=== PATIENT | female | born 1940 | race Caucasian/White ===

== ENCOUNTER → 2024-02-05 09:12 | Outpatient (REF) | payer MEDICARE, OTHER, SELFPAY | LOC: HWRCS 09:12 | PROVIDERS: ATTENDING PHYSICIAN Nuclear Medicine Nuclear Cardiology; FAMILY PHYSICIAN Family Medicine | DX: R06.00 Dyspnea, unspecified (principal); I34.0 Nonrheumatic mitral (valve) insufficiency; I34.2 Nonrheumatic mitral (valve) stenosis | CPT/HCPCS: 93306 ==

== ENCOUNTER 2024-03-10 23:06 | Emergency (ER) | payer MEDICARE, OTHER, SELFPAY ==
[2024-03-10 23:07] VITALS: BP 120/50
[2024-03-10 23:27] LABS: % Basophils 0.3 % (0-2); % Eosinophils 0.4 % (0-6); % Immature Granulocytes 0.4 % (0-0.5); % Monocytes 10.9 % (1.7-9.3); Absolute Lymphocytes 0.4 10^3/uL (1.2-3.4); Absolute Monocytes 0.8 10^3/uL (0.1-0.6); Absolute Neutrophils 6.3 10^3/uL (1.4-6.5); Hematocrit 37.5 % (37.0-47.0); Hemoglobin 12.6 g/dL (12.0-16.0); Mean Corp Hgb Conc. 33.6 g/dL (33.0-37.0); Mean Corpuscular Hgb 30.1 pg (27.0-31.0); Mean Corpuscular Volume 89.5 fL (81.0-99.0); Mean Platelet Volume 11.1 fL (7.4-10.4); Nucleated Red Blood Cells % 0 %; Platelet Count 146 10^3/uL (130-400); Red Blood Cell Count 4.19 10^6/uL (4.20-5.40); White Blood Cell Count 7.6 10^3/uL (4.8-10.8)
[2024-03-10 23:42] LABS: ALT (SGPT) 30 U/L (0-35); AST (SGOT) 34 U/L (14-36); Alkaline Phosphatase 51 U/L (38-126); Blood Urea Nitrogen 29 mg/dl (7-17); Calcium 9.2 mg/dl (8.4-10.2); Carbon Dioxide 24 mmol/L (22-30); Chloride 98 mmol/L (98-107); Estimated Creatinine Clearance 41 ml/min; Glucose 193 mg/dl (70-99); Potassium 4.2 mmol/L (3.5-5.1); Sodium 133 mmol/L (135-145); Total Bilirubin 1.1 mg/dl (0.2-1.3); Total Protein 6.4 g/dl (6.3-8.2); eGFR > 60.00
--- NOTE | 2024-03-10 23:52 | ED.GENMED ---
History of Present Illness
General
Chief Complaint: Abdominal Symptoms
Source: patient and family
Exam Limitations: none
Time Seen by Provider: 03/10/24 23:30
Nursing documentation reviewed up to this point in time: agreed with
History of Present Illness
History of Present Illness:
Patient is an 83-year-old female who presents to the ER for evaluation. She reports today she did not feel well and then prior to arrival started with diarrhea and had around 3 episodes of diarrhea. She stood up at home in her bedroom prior to
arrival and fell hitting her right forehead. She denies loss of consciousness. She was able to call her daughter who was not able to get her up and they called EMS. Patient did feel nauseous and was given Zofran by medics and does feel better.
She denies any abdominal pain.
Review of Systems
Review of Systems
Allergies reviewed?: Yes
All Other Systems: ROS reviewed and negative except as documented in HPI and ROS
Constitutional: Reports fatigue; Denies fever or chills
EENT: Reports no symptoms
Respiratory: Reports no symptoms
Cardiac: Reports no symptoms
ABD/GI: Reports nausea and diarrhea; Denies abdominal pain or vomiting
Musculoskeletal: Reports no symptoms
Skin: Reports no symptoms
Neurological: Reports no symptoms
Psychiatric: Reports no symptoms
Phy Exam
General Physical Exam
General Presentation: no apparent distress
General age: appears stated age
General Skin: warm and dry
General Habitus: normal
General Mental: alert
General Hydration: appears well hydrated
Gastrointestinal Exam
Gastrointestinal Exam: normal bowel sounds, non tender and soft
Neurological Exam
Neurological Exam: alert and oriented x3
Musculoskeletal Exam
Musculoskeletal Exam: full ROM and other (right forehead with small amt of ecchymosis )
Skin Exam
Skin Exam: normal color and warm/dry
Psychiatric Exam
Psychiatric Exam: normal mood/affect
Course
Orders/Labs/Results
Orders:
Orders
03/10/24 23:20
CMP [Comprehensive Metabolic Panel] Urgent
Complete Blood Count/With Diff Urgent
03/11/24 00:01
0.9% Sodium Chloride 1000 ml [Nss] 1,000 ml IV BOLUS
03/11/24 00:03
CT Head W/o Iv Contrast Urgent
Reason For Exam: trauma
Abnormal Lab Results
03/10/24
23:20
RBC 4.19 L 10^6/uL
(4.20-5.40)
MPV 11.1 H fL
(7.4-10.4)
Absolute Lymphs (auto) 0.4 L 10^3/uL
(1.2-3.4)
Absolute Monos (auto) 0.8 H 10^3/uL
(0.1-0.6)
Neutrophils % 83.0 H %
(42.2-75.2)
Lymphocytes % 5.0 L %
(20.5-51.1)
Monocytes % 10.9 H %
(1.7-9.3)
Sodium 133 L mmol/L
(135-145)
BUN 29 H mg/dl
(7-17)
Glucose 193 H mg/dl
(70-99)
03/10/24 23:20
03/10/24 23:20
Vital Signs
Initial and Last Documented VS:
Initial Vital Signs
Temp Pulse Resp BP Pulse Ox
100.0 F 77 21 120/50 93
03/10/24 23:07 03/10/24 23:07 03/10/24 23:07 03/10/24 23:07 03/10/24 23:07
Last Documented Vital Signs
Temp Pulse Resp BP Pulse Ox
98.6 F 71 17 118/59 94
03/11/24 00:40 03/11/24 00:30 03/11/24 00:30 03/11/24 00:00 03/11/24 00:15
MDM/Problems Addressed
Differential Diagnosis Includes:
Dehydration viral syndrome
MDM/Problems Addressed:
Symptoms are consistent with viral syndrome.
Patient is an 83-year-old female who presented with diarrhea. Patient had several episodes of diarrhea today and nausea but did not vomit. Patient does live alone and fell and hit her head and was not able to get up on her own and called her
daughter and EMS came. Daughter lives close to patient. She is not on blood thinners. She denies any headache. She presents awake alert no acute distress CAT scan head negative. Patient was mildly dehydrated and given fluids. Abdomen is soft
and nontender. She denies any fevers had low grade temp of 100 with white count normal. Stable hemoglobin. Patient feeling much better.
Daughter will stay with patient tonight. Discussed increasing fluids and close outpatient follow-up for lab recheck in the next of days return if any worsening of symptoms
*Radiology
Radiology exam reviewed: radiology read reviewed
*Pulse Oximetry
Patient hypoxic: no
*Critical Care Note
Total Time (30-74mins, 75-104mins- exclusive of procedures): Not Applicable
ED Attending Note
-
Portions of this chart may have been created with voice recognition software.� Occasional wrong word or��sound alike� substitutions may have occurred due to the inherent limitations of voice recognition software.
Discharge Plan
Departure
Patient Disposition: Home (Routine Discharge)
Date of Disposition: 03/11/24
Time of Disposition: 02:20
Patient with high blood pressure during this ER visit?: No
Condition: Fair
Covid-19: Not Applicable
Discharge Problem:
Diarrhea
Instructions: Diarrhea in teens and adults, Clear Liquid Diet, Dehydration, Adult (DC)
Referrals:
Logan Auguste, [Family Provider] -
Activity Restrictions/Additional Instructions:
Stay hydrated. Follow-up with family doctor in the next several days.
return if any worsening of symptoms.
Interventions
Interventions:
*Risk Screen - Suicide Last Done: 03/10/24 23:07
*General Assessment Last Done: 03/10/24 23:07
*Neglect/Abuse Screening Last Done: 03/10/24 23:07
ED- Fall Risk Assessment Last Done: 03/10/24 23:16
*ED COVID-19 Vaccine History Last Done: 03/10/24 23:30
NW-Oatomj-Qocnbjring Assessment Last Done: 03/10/24 23:16
ED-Musculoskeletal Assessment Last Done: 03/10/24 23:16
ED- Neurological Assessment Last Done: 03/10/24 23:16
ED-Skin Assessment Last Done: 03/10/24 23:16
Discharge Date and Time
Print Language: LAO
[2024-03-11] VITALS: BP 118/59
[2024-03-11] MEDS: NSS 1000 IV (00:09)
[2024-03-11 01:12] VITALS: BP 130/53
[2024-03-11 02:00] VITALS: BP 109/55
== END 2024-03-11 02:40 | disposition home or self-care (01) ==
LOC: EMR 23:06
PROVIDERS: EMERGENCY PHYSICIAN Emergency Medicine; FAMILY PHYSICIAN Family Medicine
DX: E86.0 Dehydration (principal); R19.7 Diarrhea, unspecified; S00.83XA Contusion of other part of head, initial encounter; W19.XXXA Unspecified fall, initial encounter; R11.0 Nausea; Z60.2 Problems related to living alone
CPT/HCPCS: 96360; 99284; 70450; 80053; 85025

== ENCOUNTER 2024-07-10 08:43 | Emergency (ER) | payer OTHER, SELFPAY ==
[2024-07-10 08:48] VITALS: BP 86/62
[2024-07-10 08:57] VITALS: BP 129/95
[2024-07-10 09:00] VITALS: BP 141/85
[2024-07-10 09:08] VITALS: BMI 30.6
--- NOTE | 2024-07-10 09:08 | ED.GENMED ---
History of Present Illness
<Lopez Dailey PA-C - Last Filed: 07/10/24 12:16>
General
Chief Complaint: Cardiac Symptoms
Source: patient
Time Seen by Provider: 07/10/24 08:55
History of Present Illness
History of Present Illness:
84-year-old female with past medical history of hypertension and type II diet presenting to the emergency department with EMS after she was walking into the [employer] to do some grocery shopping for the when she suddenly felt
palpitations, lightheaded and exertionally dyspneic to the point where she needed to sit down and rest. Patient states that a couple of times over the last few weeks she has experienced similar just not as severe and usually when she is exerting
herself from going up a set of stairs. At time of my examination patient does report that she is feeling better although she is noted to have a heart rate between 130 and 150 bpm. Patient states that she has no known cardiac arrhythmia or ACS
history although does have a 'heart murmur' that is monitored. Patient is unsure as to her last echocardiogram but does believe she has had 1 within the last year. Social history noncontributory. Patient denies any recent travel or recent
illnesses.
Past History
<Lopez Dailey PA-C - Last Filed: 07/10/24 12:16>
Past History
ED Past Medical History: HTN and NIDDM
ED Past Surgical History: Bowel resection, and Orthopedic
Social History
Tobacco: Non-smoker
Alcohol: None
Drug: None
Living: with family
Review of Systems
<Lopez Dailey PA-C - Last Filed: 07/10/24 12:16>
Review of Systems
All Other Systems: ROS reviewed and negative except as documented in HPI and ROS
Phy Exam
<Lopez Dailey PA-C - Last Filed: 07/10/24 12:16>
Physical Exam
Physical Exam:
GENERAL: Alert , in no apparent distress, but patient is somewhat anxious
HEAD: Normocephalic atraumatic
EYE: clear conjunctiva
NECK: Supple
ENT: o/p clr, mmm.
CARDIAC: Irregularly irregular, tachycardic
LUNGS: Clear breath sounds bilaterally, no acute respiratory distress,
NEUROLOGICAL: Alert and oriented
SKIN: Warm and dry, skin intact.
MUSCULOSKELETAL: No edema, well perfused.
PSYCH: Normal and appropriate interaction.
Scores
<Lopez Dailey PA-C - Last Filed: 07/10/24 12:16>
[id number] Score for Afib Stroke Risk
Age in Years (65=0, 65-74=1, >/=75=2): > or = 75
Sex (Female=+1): Female
Congestive Heart Failure History (Yes=+1): No
Hypertension History (Yes=+1): Yes
Stroke/TIA/Thromboembolism History (Yes=+2): No
Vascular Disease History (Yes=+1): No
Diabetes Mellitus (Yes=+1): Yes
Score: 5
Anticoagulation Recommendations: Recommend anticoagulation (as validated in nonvalvular fib)
Heart Failure Risk
Heart Failure Risk Score: Not Applicable
Heart Score for Chest Pain Patients
STEMI patient?: Not applicable
Withdrawal Assessment of Alcohol
Withdrawal Assessment Completed?: Not applicable
<Pham Ríos DO - Last Filed: 07/10/24 10:58>
[id number] Score for Afib Stroke Risk
Score: 5
Anticoagulation Recommendations: Recommend anticoagulation (as validated in nonvalvular fib)
Sepsis
<Lopez Dailey PA-C - Last Filed: 07/10/24 12:16>
Sepsis Screening
Sepsis Assessment: Sepsis Ruled Out
Sepsis Screen
Sepsis Screen: Sepsis Ruled Out
Date: 07/10/24
Time: 12:16
Course
<Lopez Dailey PA-C - Last Filed: 07/10/24 12:16>
Orders/Labs/Results
Orders:
Orders
07/10/24 08:46
Electrocardiogram (*1) Urgent
Reason for Study: Chest Pain
07/10/24 08:47
EKG- Treatment ONCE
07/10/24 09:00
Electrocardiogram (*1) Urgent
Reason for Study: Palpitations
EKG- Treatment ONCE
07/10/24 09:05
TSH Urgent
Diltiazem HCl [Cardizem] 10 mg IV NOW STA
07/10/24 09:13
Complete Blood Count/With Diff Urgent
Comprehensive Metabolic Panel Urgent
Magnesium Urgent
Troponin I Urgent
07/10/24 10:08
COVID-19 Antigen Urgent
Source: Nasal Swab
Influenza A+B Rapid Molecular Urgent
JIL Source: Nasal Swab
Specimen Description:
07/10/24 10:35
ECG [Electrocardiogram (*1)] Urgent
Reason for Study: Abnormal EKG
EKG- Treatment ONCE
Abnormal Lab Results
07/10/24
09:13
MPV 11.2 H fL
(7.4-10.4)
Lymphocytes % 20.3 L %
(20.5-51.1)
BUN 27 H mg/dl
(7-17)
Glucose 172 H mg/dl
(70-99)
Magnesium 1.4 L mg/dl
(1.6-2.3)
07/10/24 09:13
07/10/24 09:13
Vital Signs
Initial and Last Documented VS:
Initial Vital Signs
Temp Pulse Resp BP Pulse Ox
99.6 F 154 22 86/62 93
07/10/24 08:48 07/10/24 08:48 07/10/24 08:48 07/10/24 08:48 07/10/24 08:48
Last Documented Vital Signs
Temp Pulse Resp BP Pulse Ox
99.6 F 86 16 132/92 97
07/10/24 08:48 07/10/24 11:00 07/10/24 11:00 07/10/24 11:00 07/10/24 11:00
<Pham Ríos, DO - Last Filed: 07/10/24 10:58>
Orders/Labs/Results
Orders:
Orders
07/10/24 08:46
Electrocardiogram (*1) Urgent
Reason for Study: Chest Pain
07/10/24 08:47
EKG- Treatment ONCE
07/10/24 09:00
Electrocardiogram (*1) Urgent
Reason for Study: Palpitations
EKG- Treatment ONCE
07/10/24 09:05
TSH Urgent
Diltiazem HCl [Cardizem] 10 mg IV NOW STA
07/10/24 09:13
Complete Blood Count/With Diff Urgent
Comprehensive Metabolic Panel Urgent
Magnesium Urgent
Troponin I Urgent
07/10/24 10:08
COVID-19 Antigen Urgent
Source: Nasal Swab
Influenza A+B Rapid Molecular Urgent
JIL Source: Nasal Swab
Specimen Description:
07/10/24 10:35
ECG [Electrocardiogram (*1)] Urgent
Reason for Study: Abnormal EKG
EKG- Treatment ONCE
Abnormal Lab Results
07/10/24
09:13
MPV 11.2 H fL
(7.4-10.4)
Lymphocytes % 20.3 L %
(20.5-51.1)
BUN 27 H mg/dl
(7-17)
Glucose 172 H mg/dl
(70-99)
Magnesium 1.4 L mg/dl
(1.6-2.3)
07/10/24 09:13
07/10/24 09:13
Vital Signs
Initial and Last Documented VS:
Initial Vital Signs
Temp Pulse Resp BP Pulse Ox
99.6 F 154 22 86/62 93
07/10/24 08:48 07/10/24 08:48 07/10/24 08:48 07/10/24 08:48 07/10/24 08:48
Last Documented Vital Signs
Temp Pulse Resp BP Pulse Ox
99.6 F 86 16 132/92 97
07/10/24 08:48 07/10/24 11:00 07/10/24 11:00 07/10/24 11:00 07/10/24 11:00
<Lopez Dailey PA-C - Last Filed: 07/10/24 12:16>
MDM/Problems Addressed
Differential Diagnosis Includes:
Atrial fibrillation or other cardiac arrhythmia, ACS, valvular dysfunction
MDM/Problems Addressed:
84-year-old female presenting to the emergency department for an acute onset of feeling short of breath, palpitations and lightheadedness while grocery shopping this morning, notes she has had brief but intermittent episodes of some shortness of
breath and palpitations over the last few weeks. Follows with cardiology annually for monitoring of a heart murmur. Found to be in new onset A-fib on arrival. Initially in triage patient tachycardic and hypotensive however blood pressure at time
of our exam is within normal limits but heart rate remains between 130 and 150 bpm. Will treat patient's heart rate with 10 mg bolus of Cardizem, consider Cardizem drip if heart rate remains elevated. Patient [id number] score of 5 and will need
to be anticoagulated but will discuss with cardiology prior to this. Disposition pending
<Lopez Dailey PA-C - Last Filed: 07/10/24 12:16>
*Pulse Oximetry
Patient hypoxic: no
*EKG
Heart Rate: 129
Rate: tachycardiac
Rhythm: a-fib
Dougherty: left axis deviation
QRS Pattern: left vent hypertrophy
Ischemia: T-wave inversion (lateral leads)
*Silk Washing Machine Operator Interpretation
Rate: tachycardiac
Rhythm: a-fib
*Critical Care Note
Total Time (30-74mins, 75-104mins- exclusive of procedures): 30
comment:
Critical care statement: A total of 30 minutes of critical care time was provided for this patient. This includes management of unstable vital signs, evaluation of the patient at bedside, reviewing the patient's pertinent medical records, discussion
with consultants, review of old EKGs and review of pertinent medical records. This time with separate from time utilized to perform the aforementioned documented procedures
<Lopez Dailey PA-C - Last Filed: 07/10/24 12:16>
Patient Management
Discussion with other providers: Supervisor Coating
Escalation/DeEscalation of care consider admission/obs:
While waiting for remaining work up patient spontaneously converted back in to a NSR at a rate around 75bpm. She remains asymptomatic. Given her CHADS-VASC score will still initiate treatment with anticoagulant. Reviewed case with cardiology and
okay with starting 5mg elqiuis BID and cardizem 120mg PO Daily. Patient has pre-arranged follow up with PCP for next week. Discussed potential complications from her new medications and patient as well as daughter expressed understanding. Patient
is otherwise stable for discharge home. Aware of return precautions to the ER.
ED Attending Note
<Lopez Dailey PA-C - Last Filed: 07/10/24 12:16>
-
Portions of this chart may have been created with voice recognition software.� Occasional wrong word or��sound alike� substitutions may have occurred due to the inherent limitations of voice recognition software.
<Pham Ríos DO - Last Filed: 07/10/24 10:58>
ED Attending Note
Patient seen and examined by attending physician: Yes
I performed the substantive portion of visit, reviewed & personally made and approve the management plan that is documented in note by myself or BOBBY.: Yes
I performed a history and physical exam of patient and discussed management with resident, I reviewed resident's note and agree with documented findings and plan of care.: Yes
ED Attending Note:
84-year-old female with history of diabetes presenting for exertional dyspnea. Patient reports the past few weeks she has had a few episodes where she was feeling short of breath while walking. Today she went to the grocery store and upon entrance
into the grocery store felt very short of breath, had to sit down. She called her friend who brought her to the hospital. Patient found to be in A-fib with RVR on arrival, no prior history. She is not on any anticoagulation. Denies any chest
pain. Denies cough or fever. She notes that she follows with a rehabilitation therapy technician for heart murmur. Vitals on arrival significant for hypotension tachycardia.
On my assessment, patient is resting comfortably, no acute distress. Blood pressure has improved without intervention. Patient however is in A-fib RVR. No prior EKG for comparison. Suspected source of patient's dyspnea. No signs of overt heart
failure, no lower extremity edema, no rales on lung exam. No JVD. Patient does have a low-grade temperature, infectious consideration. Plan for chest x-ray imaging and viral swabs. Regarding her A-fib, will trial diltiazem with ultimate plan for
cardiology consultation
10:50 -patient has spontaneously converted after diltiazem, sinus rhythm. In discussion with cardiology, plan for outpatient follow-up. Starting on diltiazem and Eliquis. Daughter and friend updated. Plan for discharge
Discharge Plan
Departure
Patient Disposition: Home (Routine Discharge)
Date of Disposition: 07/10/24
Time of Disposition: 11:01
Patient with high blood pressure during this ER visit?: No
Discharge Problem:
Atrial fibrillation
Instructions: Atrial fibrillation - Discharge instructions, Chest Pain DCA Follow Up
Prescriptions:
New
Eliquis 5 mg tablet
5 mg PO BID Qty: 60 0RF
diltiazem HCl [Cardizem CD] 120 mg capsule,extended release 24hr
120 mg PO DAILY Qty: 30 0RF
Referrals:
Jake Estrella DO [Active] -
Logan Auguste DO [Family Provider] -
Interventions
Interventions:
*Risk Screen - Suicide Last Done: 07/10/24 08:53
*General Assessment Last Done: 07/10/24 08:53
*Neglect/Abuse Screening Last Done: 07/10/24 08:53
*ED- Fall Risk Assessment Last Done: 07/10/24 11:35
*ED COVID-19 Vaccine History Last Done: 07/10/24 11:35
*Nursing Disposition Last Done: 07/10/24 11:35
ED- Cardiac Assessment Last Done: 07/10/24 10:13
ED- Pulmonary Assessment Last Done: 07/10/24 10:13
Discharge Date and Time
Discharge Date/Time: 07/10/24 11:35
Print Language: [place]
[2024-07-10] MEDS: CARDIZEM 10 MG IV (09:15)
[2024-07-10 09:27] LABS: % Basophils 0.4 % (0-2); % Eosinophils 1.5 % (0-6); % Immature Granulocytes 0.3 % (0-0.5); % Lymphocytes 20.3 % (20.5-51.1); % Neutrophils 69.5 % (42.2-75.2); Absolute Eosinophils 0.1 10^3/uL (0-0.7); Absolute Lymphocytes 1.4 10^3/uL (1.2-3.4); Absolute Monocytes 0.6 10^3/uL (0.1-0.6); Absolute Neutrophils 4.9 10^3/uL (1.4-6.5); Hematocrit 40.8 % (37.0-47.0); Hemoglobin 13.9 g/dL (12.0-16.0); Mean Corp Hgb Conc. 34.1 g/dL (33.0-37.0); Mean Corpuscular Hgb 29.8 pg (27.0-31.0); Mean Corpuscular Volume 87.6 fL (81.0-99.0); Mean Platelet Volume 11.2 fL (7.4-10.4); Nucleated Red Blood Cells % 0 %; Platelet Count 175 10^3/uL (130-400); Red Blood Cell Count 4.66 10^6/uL (4.20-5.40); Red Cell Dist. Width 12.8 % (11.5-14.5); White Blood Cell Count 7.1 10^3/uL (4.8-10.8)
[2024-07-10 09:37] LABS: ALT (SGPT) 19 U/L (0-35); AST (SGOT) 24 U/L (14-36); Albumin 4.5 g/dl (3.5-5.0); Alkaline Phosphatase 63 U/L (38-126); Blood Urea Nitrogen 27 mg/dl (7-17); Calcium 9.7 mg/dl (8.4-10.2); Carbon Dioxide 25 mmol/L (22-30); Chloride 103 mmol/L (98-107); Estimated Creatinine Clearance 40 ml/min; Glucose 172 mg/dl (70-99); Magnesium 1.4 mg/dl (1.6-2.3); Potassium 4.3 mmol/L (3.5-5.1); Sodium 140 mmol/L (135-145); Total Bilirubin 1.3 mg/dl (0.2-1.3); Total Protein 6.8 g/dl (6.3-8.2); eGFR > 60.00
[2024-07-10 09:48] LABS: Troponin I 0.024 ng/ml
[2024-07-10 10:00] VITALS: BP 114/59
[2024-07-10 10:38] LABS: COVID-19 Antigen Negative (Negative)
--- NOTE | 2024-07-10 10:55 | EDRN ---
Jorge Dailey PA in to see pt.
[2024-07-10 11:00] VITALS: BP 132/92
[2024-07-10 16:49] LABS: TSH 2.03 uIU/ml (0.47-4.68)
== END 2024-07-10 11:35 | disposition home or self-care (01) ==
LOC: EMR 08:43
PROVIDERS: Physician Assistant Medical; EMERGENCY PHYSICIAN Student in an Organized Health Care Education/Training Program; FAMILY PHYSICIAN Family Medicine
DX: I48.91 Unspecified atrial fibrillation (principal); I10 Essential (primary) hypertension; E11.9 Type 2 diabetes mellitus without complications; Z01.810 Encounter for preprocedural cardiovascular examination
CPT/HCPCS: 99283; 96374; 80053; 83735; 84443; 84484; 85025; 87502; 87811; 93005

== ENCOUNTER → 2024-11-14 14:55 | Outpatient (REF) | payer OTHER, SELFPAY | LOC: HWRCS 14:55 | PROVIDERS: ATTENDING PHYSICIAN Nuclear Medicine Nuclear Cardiology; FAMILY PHYSICIAN Family Medicine | DX: I48.0 Paroxysmal atrial fibrillation (principal); R06.00 Dyspnea, unspecified | CPT/HCPCS: 93306 ==

== ENCOUNTER 2024-11-16 14:14 | Emergency (ER) | payer OTHER, SELFPAY ==
[2024-11-16 14:15] VITALS: BP 123/61
[2024-11-16 14:27] LABS: Hematocrit 38.7 % (37.0-47.0); Hemoglobin 13.0 g/dL (12.0-16.0); Mean Corp Hgb Conc. 33.6 g/dL (33.0-37.0); Mean Corpuscular Volume 87.6 fL (81.0-99.0); Nucleated Red Blood Cells % 0 %; Platelet Count 170 10^3/uL (130-400); Red Cell Dist. Width 13.2 % (11.5-14.5)
[2024-11-16 14:56] LABS: ALT (SGPT) 13 U/L (0-35); AST (SGOT) 19 U/L (14-36); Albumin 4.1 g/dl (3.5-5.0); Alkaline Phosphatase 69 U/L (38-126); Blood Urea Nitrogen 37 mg/dl (7-17); Calcium 9.4 mg/dl (8.4-10.2); Carbon Dioxide 25 mmol/L (22-30); Chloride 104 mmol/L (98-107); Glucose 170 mg/dl (70-99); Potassium 4.2 mmol/L (3.5-5.1); Sodium 139 mmol/L (135-145); Total Protein 6.5 g/dl (6.3-8.2); eGFR 44.36
[2024-11-16 15:06] LABS: Urine Character Clear (Clear)
[2024-11-16 15:19] LABS: Urine Red Blood Cell None Seen /HPF (0-2)
--- NOTE | 2024-11-16 18:34 | ED.GENMED ---
History of Present Illness
<Adolfo Stoner PA-C - Last Filed: 11/16/24 18:35>
General
Chief Complaint: Urinary Symptoms
Source: patient
Exam Limitations: none
Time Seen by Provider: 11/16/24 18:14
History of Present Illness
History of Present Illness:
84-year-old female insulin-dependent diabetic on Eliquis presents complaining of not feeling well starting yesterday. She has felt chills nausea left flank pain and urinary incontinence. Her symptoms are significantly improved today however she
spoke with the doctor and they advised she come here for evaluation. No fevers currently. She denies chest pain or shortness of breath. No cough. No other complaint. She does have a history of diverticulitis requiring partial colectomy.
Past History
<YANG Mckinney Last Filed: 11/16/24 18:35>
Past History
ED Past Medical History: HTN and NIDDM
ED Past Surgical History: Bowel resection, and Orthopedic
Social History
Tobacco: Non-smoker
Alcohol: None
Drug: None
Living: with family
Phy Exam
<YANG Mckinney Last Filed: 11/16/24 18:35>
Physical Exam
Physical Exam:
General: Well-appearing female in no acute respiratory distress
HEENT: Normocephalic atraumatic
Heart: Regular rate and rhythm
Lungs: Clear no wheeze
Abdomen is soft tender to the left mid abdomen no guarding or rebound nondistended
Extremities: No cyanosis
Course
<YANG Mckinney Last Filed: 11/16/24 18:35>
Orders/Labs/Results
Orders:
Orders
11/16/24 14:22
Complete Blood Count/With Diff Urgent
Comprehensive Metabolic Panel Urgent
11/16/24 14:28
Urinalysis Reflex To Culture Urgent
Date Specimen was Collected: 11/16/24
Time Specimen was Collected: 14:18
Urine Microscopic Reflex Cult Urgent
Urine Culture Urgent
JIL Source: U
Specimen Description:
Date Specimen was Collected: 11/16/24
Time Specimen was Collected: 14:18
11/16/24 18:25
CT Abd/pelvis W Iv Cont Urgent
Comment:
Reason For Exam: left mid abdominal pain
Abnormal Lab Results
11/16/24 11/16/24
14:22 14:28
MPV 10.6 H fL
(7.4-10.4)
Absolute Monos (auto) 0.7 H 10^3/uL
(0.1-0.6)
Monocytes % 9.7 H %
(1.7-9.3)
BUN 37 H mg/dl
(7-17)
Creatinine 1.2 H mg/dL
(0.6-1.0)
Glucose 170 H mg/dl
(70-99)
Leukocyte Esterase Rfl 1+ A
(Negative)
Urine Bacteria (Reflex) Few A
(Negative)
Urine Albumin (Reflex) 1+ A
(Neg - Trace)
11/16/24 14:22
11/16/24 14:22
Vital Signs
Initial and Last Documented VS:
Initial Vital Signs
Temp Pulse Resp BP Pulse Ox
98.7 F 91 18 123/61 95
11/16/24 14:15 11/16/24 14:15 11/16/24 14:15 11/16/24 14:15 11/16/24 14:15
Last Documented Vital Signs
Temp Pulse Resp BP Pulse Ox
98.0 F 74 24 150/69 97
11/16/24 19:57 11/16/24 21:00 11/16/24 21:00 11/16/24 21:00 11/16/24 21:00
<SERGE Brown - Last Filed: 11/16/24 22:14>
Orders/Labs/Results
Orders:
Orders
11/16/24 14:22
Complete Blood Count/With Diff Urgent
Comprehensive Metabolic Panel Urgent
11/16/24 14:28
Urinalysis Reflex To Culture Urgent
Date Specimen was Collected: 11/16/24
Time Specimen was Collected: 14:18
Urine Microscopic Reflex Cult Urgent
Urine Culture Urgent
JIL Source: U
Specimen Description:
Date Specimen was Collected: 11/16/24
Time Specimen was Collected: 14:18
11/16/24 18:25
CT Abd/pelvis W Iv Cont Urgent
Comment:
Reason For Exam: left mid abdominal pain
Abnormal Lab Results
11/16/24 11/16/24
14:22 14:28
MPV 10.6 H fL
(7.4-10.4)
Absolute Monos (auto) 0.7 H 10^3/uL
(0.1-0.6)
Monocytes % 9.7 H %
(1.7-9.3)
BUN 37 H mg/dl
(7-17)
Creatinine 1.2 H mg/dL
(0.6-1.0)
Glucose 170 H mg/dl
(70-99)
Leukocyte Esterase Rfl 1+ A
(Negative)
Urine Bacteria (Reflex) Few A
(Negative)
Urine Albumin (Reflex) 1+ A
(Neg - Trace)
11/16/24 14:22
11/16/24 14:22
Vital Signs
Initial and Last Documented VS:
Initial Vital Signs
Temp Pulse Resp BP Pulse Ox
98.7 F 91 18 123/61 95
11/16/24 14:15 11/16/24 14:15 11/16/24 14:15 11/16/24 14:15 11/16/24 14:15
Last Documented Vital Signs
Temp Pulse Resp BP Pulse Ox
98.0 F 74 24 150/69 97
11/16/24 19:57 11/16/24 21:00 11/16/24 21:00 11/16/24 21:00 11/16/24 21:00
<Adolfo Stoner PA-C - Last Filed: 11/16/24 18:35>
MDM/Problems Addressed
Differential Diagnosis Includes:
Left mid abdominal pain preceded by chills sweats nausea. Consider diverticulitis versus renal colic versus UTI or pyelonephritis
Will check labs. CT ordered
<Adolfo Stoner PA-C - Last Filed: 11/16/24 18:35>
*Pulse Oximetry
SaO2: 95
Oxygen Mode of Delivery: Room air
<SERGE Brown - Last Filed: 11/16/24 22:14>
*Radiology
Radiology exam reviewed: radiology read reviewed
*Pulse Oximetry
Patient hypoxic: no
*Critical Care Note
Total Time (30-74mins, 75-104mins- exclusive of procedures): Not Applicable
<SERGE Brown - Last Filed: 11/16/24 22:14>
Update Note
Update Note:
Received signout
CAT scan shows uncomplicated diverticulitis of the descending colon no bowel obstruction normal gallbladder and normal appendix. Patient is afebrile with a normal white count. I examined this patient and she is well-appearing in no acute distress
abdomen soft nontender on my exam she wishes to go home and with normal white count no fever and uncomplicated diverticulitis on CAT scan plan to discharge home on Augmentin. d/c close outpatient follow-up with family doctor next 2 days. Patient
mildly dehydrated however wishes to go home and increase fluids. In addition though this is a preliminary report read by radiology I did review with patient and daughter at bedside there is a peripherally calcified low-density lesion within the
deep pelvis measuring 6.8 x 5 cm possibly arising from the right adnexa though nonspecific this is recommended to be further evaluated by ultrasound.
ED Attending Note
<Adolfo Stoner PA-C - Last Filed: 11/16/24 18:35>
-
Portions of this chart may have been created with voice recognition software.� Occasional wrong word or��sound alike� substitutions may have occurred due to the inherent limitations of voice recognition software.
Discharge Plan
Departure
Patient Disposition: Home (Routine Discharge)
Date of Disposition: 11/16/24
Time of Disposition: 22:10
Patient with high blood pressure during this ER visit?: Yes
Condition: Fair
Covid-19: Not Applicable
Discharge Problem:
Diverticulitis
Instructions: Diverticulitis (DC), BLOOD PRESSURE
Prescriptions:
New
amoxicillin-pot clavulanate 875-125 mg tablet
1 tab PO BID Qty: 20 0RF
No Action
Eliquis 5 mg tablet
5 mg PO BID Qty: 60 0RF
diltiazem HCl [Cardizem CD] 120 mg capsule,extended release 24hr
120 mg PO DAILY Qty: 30 0RF
Referrals:
Logan Auguste DO [Family Provider, Family Practice]
Activity Restrictions/Additional Instructions:
As discussed your CAT scan showed uncomplicated diverticulitis .
you were given the first dose of Augmentin here in the ER and a prescription was sent to your pharmacy to take twice a day for the next 10 days. [place] diet. Please increase fluids as your labs reveal that you are mildly dehydrated.
In addition as documented please follow-up with your family doctor for reevaluation of CAT scan findings including a calcified lesion possibly arising from your right ovary. This will need additional imaging including a dedicated ultrasound.
Follow-up with your family doctor on Monday for reevaluation of symptoms. Return if any worsening of symptoms include increased pain nausea vomiting fever chills.
Interventions
Interventions:
*Risk Screen - Suicide Last Done: 11/16/24 14:18
*General Assessment Last Done: 11/16/24 14:15
*Neglect/Abuse Screening Last Done: 11/16/24 14:15
*ED- Fall Risk Assessment Last Done: 11/16/24 19:46
*ED COVID-19 Vaccine History Last Done: 11/16/24 19:46
ED-Female Genitourinary Assessment Last Done: 11/16/24 19:46
Discharge Date and Time
Print Language: ALBAN[place]
[2024-11-16 19:46] VITALS: BMI 31.2
[2024-11-16 20:16] VITALS: BP 144/64
[2024-11-16 21:00] VITALS: BP 150/69
[2024-11-16 22:00] VITALS: BP 146/92
[2024-11-16] MEDS: AUGMENTIN 875 MG/125 MG 1 TABLET PO (22:21)
== END 2024-11-16 22:39 | disposition home or self-care (01) ==
LOC: EMR 14:14
PROVIDERS: Emergency Medicine; EMERGENCY PHYSICIAN Student in an Organized Health Care Education/Training Program; FAMILY PHYSICIAN Family Medicine
DX: K57.92 Diverticulitis of intestine, part unspecified, without perforation or abscess without bleeding (principal); R32 Unspecified urinary incontinence; E11.9 Type 2 diabetes mellitus without complications; I10 Essential (primary) hypertension; Z79.01 Long term (current) use of anticoagulants
CPT/HCPCS: 99284; 74177; 80053; 81003; 81015; 85025; 87086; Q9967

== ENCOUNTER → 2024-11-20 07:14 | Outpatient (REF) | payer OTHER, SELFPAY | LOC: HWRCS 07:14 | PROVIDERS: ATTENDING PHYSICIAN Nuclear Medicine Nuclear Cardiology; FAMILY PHYSICIAN Family Medicine | DX: I48.0 Paroxysmal atrial fibrillation (principal); R06.00 Dyspnea, unspecified | CPT/HCPCS: 78452; 93017; A9500; J2785 ==